=== PATIENT | male | born 1995 | race Caucasian/White ===

== ENCOUNTER 2019-01-24 20:10 | Emergency (ER) | payer OTHER ==
[~2019-01-24] VITALS: Ht 182.9 cm; Wt 91.3 kg
[2019-01-24 20:15] VITALS: TEMP 98.4
[2019-01-24] MEDS ORDERED: SYNTHROID0.075 MG/T (20:34)
[2019-01-24] MEDS ORDERED: NOVOLOG 100U100 U/M1 (20:36)
[2019-01-24] MEDS ORDERED: NORCO 325 MG-51 TAB PO (22:29)
[2019-01-24 22:39] VITALS: BP 130/78; PULSE 84
== END 2019-01-24 22:43 | disposition home or self-care (01) ==
LOC: COL.ER 20:10
DX: S42.202A Unspecified fracture of upper end of left humerus, initial encounter for closed fracture (principal); Z79.4 Long term (current) use of insulin; W19.XXXA Unspecified fall, initial encounter; Y92.009 Unspecified place in unspecified non-institutional (private) residence as the place of occurrence of the external cause
CPT/HCPCS: J1885; J2704; J3010; J7030